=== PATIENT | female | born 1985 | race Caucasian/White ===

== ENCOUNTER 2019-05-17 14:04 | Inpatient (IN) | payer MEDICAID, SELFPAY ==
[2019-05-17] VITALS (7 sets, daily range): BP systolic 78–101; BP diastolic 43–54
[~2019-05-17] VITALS: Ht 172.7 cm; Wt 62.4 kg
[2019-05-17] MEDS ORDERED: MIDAZOLAM INJ 5 MG/ML VIAL (J2250) As Ordered ONE (14:38)
[2019-05-17] MEDS ORDERED: NS 1,000 ML IV ONE (14:45)
[2019-05-17] MEDS ORDERED: MIDAZOLAM HCL 50 MG in D5W 40 ML IV SCH (15:00)
--- NOTE | 2019-05-17 15:01 | REP ---
Clinical: Status post cardiac arrest . Comparison: None . Findings: Endotracheal tube approximately 4 cm above the brennen. The mediastinum and cardiac silhouette are stable and within normal limits for portable technique. The lung johnson are clear without acute consolidation, effusion, or pneumothorax. Skeletal structures are intact. Impression: No acute cardiopulmonary process appreciated. Electronically Signed by Ross Macedo MD 05/17/2019 02:52 P
[2019-05-17 15:50] LABS: HEMATOCRIT 48.9 % (36.0-47.0); HEMOGLOBIN 15.6 g/dl (12.0-15.5); MEAN CORPUSCULAR HEMOGLOBIN 30.9 pg (27.0-33.0); MEAN CORPUSCULAR HGB CONC 31.9 g/dl (32.0-36.5); MEAN CORPUSCULAR VOLUME 96.8 fl (80.0-96.0); PLATELET COUNT, AUTOMATED 316 10^3/uL (150-450); RED BLOOD COUNT 5.05 10^6/uL (4.00-5.40); WHITE BLOOD COUNT 15.9 10^3/uL (4.0-10.0)
--- NOTE | 2019-05-17 15:54 | REP ---
CT: 05/17/2019. Indication: Unresponsive. Stroke. Comparison: 09/29/2007. Findings: There is diffuse loss of mendez-white differentiation and sulcal effacement as well as effacement of the ventricles. The basal cisterns are effaced. 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 There is no shift of the midline structures. Comment: The above critical findings were conveyed to Dr. Gerardo at the time of interpretation. Electronically Signed by Chuck Black DO 05/17/2019 03:53 P
[2019-05-17 15:59] LABS: ABG BASE EXCESS -12.1 (-2.0-2.0); ABG HCO3 16.6 MEQ/L (22.0-26.0); ABG O2 SATURATION 94.5 % (95.0-99.0); ABG PARTIAL PRESSURE CO2 48.1 mmHg (35.0-45.0); ABG PARTIAL PRESSURE O2 88.5 mmHg (75.0-100.0); ABG STANDARD HCO3 15.2 MEQ/L (22.0-26.0); ABG TOTAL CO2 18.1 MEQ/L (22.0-29.0)
[2019-05-17 16:02] LABS: ABG pH (ARTERIAL) 7.157 UNITS (7.350-7.450)
[2019-05-17 16:17] LABS: AMPHETAMINES LEVEL URINE NEGATIVE (NEGATIVE); BARBITURATES URINE NEGATIVE (NEGATIVE); BENZODIAZEPINES URINE NEGATIVE (NEGATIVE); CANNABINOIDS URINE POSITIVE (NEGATIVE); COCAINE METABOLITE URINE POSITIVE (NEGATIVE); METHADONE URINE NEGATIVE (NEGATIVE); OPIATES URINE POSITIVE (NEGATIVE); PHENCYCLIDINE URINE NEGATIVE (NEGATIVE)
[2019-05-17 16:28] LABS: ANISOCYTOSIS 1+; ATYPICAL LYMPH 2 % (0-5); EOSINOPHILS 1 % (0-3); LYMPHOCYTES 12 % (16-44); MONOCYTES 5 % (0-5); NEUTROPHILS 77 % (28-66); PLATELET ESTIMATE NORMAL (NORMAL)
[2019-05-17 16:41] LABS: ACETAMINOPHEN LEVEL < 2.0 UG/ML (10.0-30.0); ALBUMIN 3.5 GM/DL (3.2-5.2); ALT/SGPT 475 U/L (12-78); BILIRUBIN,DIRECT 0.2 MG/DL (0.0-0.2); BILIRUBIN,TOTAL 0.5 MG/DL (0.2-1.0); BLOOD UREA NITROGEN 20 MG/DL (7-18); CALCIUM LEVEL 8.9 MG/DL (8.5-10.1); CARBON DIOXIDE LEVEL 20 MEQ/L (21-32); CHLORIDE LEVEL 97 MEQ/L (98-107); CPK CREATINE PHOSPHOKINASE 353 U/L (26-192); CREATININE FOR GFR 1.35 MG/DL (0.55-1.30); ETHYL ALCOHOL (ETHANOL) < 0.003 % (0.000-0.010); GLOMERULAR FILTRATION RATE 47.8 (>60); GLUCOSE, FASTING 385 MG/DL (70-100); POTASSIUM SERUM 5.5 MEQ/L (3.5-5.1); SALICYLATE LEVEL 4.6 MG/DL (5.0-30.0); SODIUM LEVEL 130 MEQ/L (136-145); TOTAL PROTEIN 7.8 GM/DL (6.4-8.2)
[2019-05-17] MEDS ORDERED: MIDAZOLAM INJ 2 MG/2 ML VIAL (J2250) IV ONE (17:00)
[2019-05-17] MEDS ORDERED: NS 1,000 ML IV SCH (17:00)
[2019-05-17] MEDS ORDERED: SODIUM BICARBONATE 8.4% INJ 50 ML SYRINGE IV STA (17:04)
[2019-05-17 17:54] LABS: INR 1.05; PROTHROMBIN TIME 13.4 SECONDS (11.8-14.0)
[2019-05-17 17:55] LABS: PARTIAL THROMBOPLASTIN TIME 29.2 SECONDS (25.0-38.4)
[2019-05-17] MEDS ORDERED: MIDAZOLAM INJ 2 MG/2 ML VIAL (J2250) IV PRN (18:00)
[2019-05-17] MEDS: NS 1,000 ML IV SCH ×2 (18:30→21:28)
--- NOTE | 2019-05-17 19:47 | HPE ---
DATE OF ADMISSION: 05/17/2019 START TIME: 1730 STOP TIME: 1813 I was called to the ER to attend Radha Umanzor. Patient was examined and chart was reviewed. I have spoken at length with the ER as well as with family at the bedside. In essence this is a 34-year-old female who has had difficulties in the past with substance abuse mainly heroin and Suboxone. Family said she had become clean several years ago after the of a family member. Today she was last seen around 11 am, went up to take a nap. Several hours later she was found face down and unresponsive by a room mate on the floor. EMS was summoned. She was unresponsive. Pupils fixed and dilated at that time. Initial rhythm was v-fib. CRP was started and she was given Narcan, reportedly no other drugs were shot. There was a return on spontaneous circulation. She was initially hypotensive and treated with fluids. She was intubated in the field. On arrival here pressure was soft. She was volume resuscitated. Triple lumen central venous catheter was placed in the right groin by the ER. Additional blood gas showed a pH of 6.844 with a PcO2 of 94 and a Po2 of 101. Lactic acid initially 12. [employer] blood gas after some time showed a pH of 7.157, PcO2 48.1 and Po2 of 88. Repeat blood gas is currently pending. She was treated with Versed due to her pressure being soft. Chest x-ray showed no infiltrate and tube in good position. Stomach was distended and that was prior to placement of an NG tube. CT of her brain show no bleed but shows diffuse edema consistent with anoxic injury. ALLERGIES: Aspirin and no other home meds. PAST MEDICAL HISTORY: Otherwise unremarkable except for her history of substance abuse. SOCIAL HISTORY: Noted to smoke. FAMILY HISTORY: Otherwise noncontributory. REVIEW OF SYSTEMS: Essentially unobtainable except for what the family is able to offer and otherwise she was doing reasonably well as of their last report. Vital Signs: HR 129 BP 176/88 Resp 18 Afebrile PHYSICAL EXAMINATION: She has been on some Versed but the left pupil is fixed and dilated. Right pupil is about 5 mm and nonresponsive. She has no cough or gag. No corneals. She currently does not over breathe the ventilator. Membranes are moist. Trachea is midline. Chest shows symmetric expansion. There is some expiratory squeak but no other focal adventitious breath sounds are identified. Heart exam is tachycardic with a rate of about 125 and regular. Peripheral pulses are palpable and no obvious edema. Abdomen is soft and there are active bowel sounds noted. No obvious organomegaly or masses. Extremities showed multiple bruises especially in the thighs. No cyanosis or clubbing. Neurologic she is otherwise unresponsive to painful stimuli. LABS: Tox screen is positive for opiates, cocaine, metalloids and cannabinoids. Sodium 130, K 5.5, chloride 97, CO2 20, BUN 20, creatinine 1.35, glucose 385, lactic acid down to 6.9, AST 683, ALT 475, alkaline phos 362, CK 353. White blood cell 50.9, hemoglobin 15.6, platelet count 316,000, 77% segmented neutrophils, 3% bands coags unremarkable. UA shows 2+ protein, 3+ glucose, 1+ blood, 2+ urobilinogen with 5 white blood cells and RBC's per high power field. Chest x-ray and CT scan as outlined above. IMPRESSION: 1. Profound anoxic encephalopathy status post cardiopulmonary arrest. 2. Suspect primary respiratory arrest secondary to drug overdose leading to subsequent loss of circulation. 3. Polysubstance abuse. 4. Tobacco abuse. RECOMMENDATIONS: I discussed the above at length with family at the bedside. Hanna Ferguson [phone] who is an aunt , brother Josue Del Rosario [phone] and another female relative at the bedside. I discussed with them the gravity of the situation and the profound nature of her anoxic encephalopathy. At this point she IS STILL A FULL CODE. Ulcer and DVT prophylaxis have been started. We will facilitate transfer to intensive care unit. Given the fact that she already has a profound anoxic encephalopathy and cerebral edema with an unknown but rather prolonged down time she is not a candidate for hypothermia protocol. There is no obvious evidence of aspiration and there is no infiltrate. We will begin bronchodilators in view of her smoking history however. At this point her prognosis is quite guarded and quite grim. I will discuss with the family further as time goes on whether or not they would like to change her code status. In the interim she will be volume resuscitated. We will use sedatives as needed. We will proceed as outlined above. Labs will be following his closely. Repeat her lactate. We will check a troponin and ABG. I will repeat a CT scan of her brain in the morning. At this point as outlined above. Her prognosis is grim to guarded especially regarding meaningful neurologic recovery. I will likely have neurology evaluate her tomorrow. I left the bedside at 1814 hours. 43 minutes of critical care time was at the bedside not including procedures. CARLOS A
[2019-05-17] MEDS: IPRATROPIUM 0.5MG/ALBUTEROL 2.5MG INH SOL UD 3ML (DUONEB)(J7620) NEB SCH (20:03)
[2019-05-17] MEDS ORDERED: MORPHINE 2 MG/ML 1ML VIAL (J2270) IV PRN (20:15)
--- NOTE | 2019-05-17 21:42 | ECGEPIP ---
[facility] - ED Test Date: 2019-05-17 Pat Name: FARZANA FRIAS Department: Room: - Gender: Female Lump Roller: roula : 1985 Requested By: KACIE VILLANUEVA Order Number: [id number] Reading MD: Ever Sarabia Measurements Intervals Sumpter Rate: 125 P: 77 GA: 146 QRS: 60 QRSD: 96 T: 54 QT: 300 QTc: 434 Interpretive Statements SINUS TACHYCARDIA MODERATE ST DEPRESSION NO PRIORS FOR COMPARISON Electronically Signed on 05-17-2019 21:42:19 EDT by Ever Sarabia
[2019-05-17] MEDS: CHLORHEXIDINE GLUCONATE 0.12 % 15ML UDC (PERIDEX ORAL RINSE) MT SCH (22:02)
[2019-05-17] MEDS: HEPARIN SOD (PORCINE) 5000 UNITS/ML VIAL SC SCH (22:02)
[2019-05-17 22:42] LABS: MB/CK RELATIVE INDEX 2.29 (< OR =4); TROPONIN I 1.24 NG/ML (< 0.10)
[2019-05-17] MEDS ORDERED: NS 500 ML IV ONE (23:15)
[2019-05-18] VITALS (59 sets, daily range): BP systolic 67–119; BP diastolic 35–60
[2019-05-18] MEDS: NOREPINEPHRINE BITARTRATE 8 MG in D5W 492 ML IV SCH ×2 (00:40→14:22)
[2019-05-18] MEDS: IPRATROPIUM 0.5MG/ALBUTEROL 2.5MG INH SOL UD 3ML (DUONEB)(J7620) NEB SCH ×5 (00:50→15:53)
[2019-05-18] MEDS: NS 1,000 ML IV SCH (05:36)
[2019-05-18] MEDS: HEPARIN SOD (PORCINE) 5000 UNITS/ML VIAL SC SCH ×2 (05:36→13:35)
[2019-05-18 05:42] LABS: BASO # 0.1 10^3/uL (0.0-0.2); BASO % 0.2 % (0.0-1.0); HEMATOCRIT 45.6 % (36.0-47.0); HEMOGLOBIN 14.6 g/dl (12.0-15.5); LYMPH # 0.6 10^3/uL (1.5-5.0); LYMPH % 2.2 % (24.0-44.0); MEAN CORPUSCULAR HEMOGLOBIN 30.7 pg (27.0-33.0); MONO # 0.8 10^3/uL (0.0-0.8); MONO % 2.7 % (0.0-5.0); NEUTROPHILS % 93.9 % (36.0-66.0); PLATELET COUNT, AUTOMATED 281 10^3/uL (150-450); RED BLOOD COUNT 4.75 10^6/uL (4.00-5.40); WHITE BLOOD COUNT 27.7 10^3/uL (4.0-10.0)
[2019-05-18 05:51] LABS: ABG BASE EXCESS -6.8 (-2.0-2.0); ABG HCO3 20.4 MEQ/L (22.0-26.0); ABG O2 SATURATION 96.4 % (95.0-99.0); ABG PARTIAL PRESSURE CO2 47.2 mmHg (35.0-45.0); ABG PARTIAL PRESSURE O2 94.3 mmHg (75.0-100.0); ABG TOTAL CO2 21.9 MEQ/L (22.0-29.0); ABG pH (ARTERIAL) 7.254 UNITS (7.350-7.450)
[2019-05-18 06:29] LABS: BILIRUBIN,TOTAL 0.3 MG/DL (0.2-1.0); CALCIUM LEVEL 8.6 MG/DL (8.5-10.1); CK-MB VALUE MASS 9.4 NG/ML (<3.6); CREATININE FOR GFR 1.14 MG/DL (0.55-1.30); GLOMERULAR FILTRATION RATE 58.1 (>60); MB/CK RELATIVE INDEX 3.21 (< OR =4); PHOSPHORUS LEVEL 1.4 MG/DL (2.5-4.9); POTASSIUM SERUM 3.9 MEQ/L (3.5-5.1); TOTAL PROTEIN 6.5 GM/DL (6.4-8.2); TROPONIN I 1.22 NG/ML (< 0.10)
[2019-05-18] MEDS ORDERED: GLUCOSE 4 GM CHEW TABLET PO PRN (06:45)
[2019-05-18] MEDS ORDERED: DEXTROSE 50% 50 ML SYRINGE IV PRN (06:45)
[2019-05-18] MEDS ORDERED: GLUCAGON FOR INJ 1 MG VIAL (J1610) SC PRN (06:45)
[2019-05-18] MEDS ORDERED: DESMOPRESSIN 0.01% NASAL SOLN 5 ML BTL ONE (07:00)
[2019-05-18] MEDS ORDERED: D5W/0.45% SODIUM CHLORIDE 1,000 ML IV SCH (07:00)
[2019-05-18] MEDS: HumaLOG INSULIN (NovoLOG) PER UNIT SC SCH ×2 (07:46→12:26)
--- NOTE | 2019-05-18 08:01 | REP ---
Clinical: Respiratory failure . Comparison: 05/17/2019 . Findings: Endotracheal tube and nasogastric tube are in stable satisfactory position. The The mediastinum and cardiac silhouette are stable and within normal limits for portable technique. The lung johnson are clear without acute consolidation, effusion, or pneumothorax. Skeletal structures are intact. Impression: No acute cardiopulmonary process appreciated. Electronically Signed by Ross Macedo MD 05/18/2019 07:52 A
[2019-05-18] MEDS: CHLORHEXIDINE GLUCONATE 0.12 % 15ML UDC (PERIDEX ORAL RINSE) MT SCH (08:03)
[2019-05-18] MEDS ORDERED: PANTOPRAZOLE 40MG INJ (PROTONIX) (C9113) IV SCH (09:00)
[2019-05-18] MEDS ORDERED: D5W 1,000 ML IV ONE ×2 (10:00→11:00)
--- NOTE | 2019-05-18 10:28 | CCN ---
DATE OF VISIT: 05/18/2019 START TIME: 904 STOP TIME: 953 I again attended Radha Umanzor here in the intensive care unit. The patient has been examined and the chart is reviewed. I have spoken at length with her aunt who is the family appointed decision maker. Reportedly, her estranged did present last night, spoke with the nursing staff as well as with the remainder of the family. He wants no part in the decision making process. T-max overnight 100.2. Blood pressure as low as 70s with a high of 108 systolic. She is now on Levophed. Heart rate 110 to 130s with a sinus mechanism. She does not over breathe the ventilator. Ins and outs since midnight 1871 mL in with 6175 mL out. She has been given one dose of DDAVP and this is beginning to slow. White blood cell count 27.7, hemoglobin 14.6, platelet count 281,000 with 93% segs and 0 bands. Sodium up to 163, potassium 3.9, chloride 134, CO2 23, BUN 16, creatinine 1.14, lactate 2.4, phosphorus low at 1.4. Liver function tests all improved. AST 257, ALT 330, alkaline phosphatase 197, LDH 452. Troponin has remained unchanged at 1.2 since last night. Blood gas done this morning on PRVC, rate of 18, tidal volume of 420, PEEP of 5, FiO2 of 40% has a pH of 7.254, pCO2 47.2, pO2 of 94.3, saturation 96.4%. Chest x-ray shows ET tube and NG tube in good position. On exam, she is unresponsive to noxious stimuli. Pupils are both fixed and dilated. She has no cough, no gag and no corneals. Chest is clear to both auscultation and percussion. No focal adventitious breath sounds are identified. Cardiac exam is tachycardic, but regular. Peripheral pulses palpable, no edema. Abdomen shows diminished, but active bowel sounds. Abdomen is soft. Extremities show no cyanosis or clubbing. Neurologically, she does have some occasional what appear to be spinal cord reflex, but no significant response to noxious stimuli. Repeat CT scan is pending. Echo and electroencephalogram (EEG) have been ordered. I have spoken with nephrology and neurology, both who will evaluate her today. The most pressing problems requiring my immediate presence at the bedside: 1. Noxious encephalopathy secondary to polypharmacy overdose. 2. Respiratory failure secondary to #1. 3. Diabetes insipidus. She clearly has diabetes insipidus at this point. She was given a dose of DDAVP. We are correcting her electrolytes. I have asked nephrology to become involved in her care in that regard. I had a very lengthy discussion at the bedside with her aunt who is the decision maker. She is certainly leaning towards DO NOT RESUSCITATE (DNR) status, but wishes to have the patient's brother involved in the decision and he is having significant difficulties coming to waiter/waitress first class with her current situation. She clearly has a profound anoxic injury. I have neurology to become involved in her care. Repeat CT scan as well as EEG are pending. I did discuss with the aunt that she likely will progress to clinical brain if she hasn't reached that point already. We will continue her current level of supportive care, including all the interventions alluded to above. She remains on ulcer and deep vein thrombosis (DVT) prophylaxis. Ventilator adjustments have been made for her persistent metabolic acidosis, which at this point is likely hyperchloremic. Will proceed as outlined above. I await the family's further decision regarding code status. I left the bedside at 0954 hours. 49 minutes of critical care time delivered at the bedside, not including procedures.
--- NOTE | 2019-05-18 11:03 | REP ---
CT brain: 05/18/2019. Indication: Anoxic encephalopathy. Comparison: Yesterday. Technique: Unenhanced axial images of the brain were obtained from skull base to vertex. Findings: There is diffuse loss of mendez-white differentiation. Diffuse sulcal, ventricular and basal cistern effacement is noted. Pseudo subarachnoid sign is present. Cerebellar tonsils extend into the foramen magnum. Impression: Findings consistent with diffuse anoxic brain injury. Electronically Signed by Chuck Black DO 05/18/2019 10:54 A
[2019-05-18] MEDS ORDERED: VASOPRESSIN INJ 20 UNITS in NS 499 ML IV SCH (11:30)
[2019-05-18] MEDS ORDERED: NEUTRA-PHOS 1.5 GM PACKET PO SCH (12:00)
[2019-05-18] MEDS: KCL 20MEQ IN D5W 1000ML 1,000 ML IV SCH ×2 (12:06→15:55)
[2019-05-18 12:28] LABS: ALBUMIN 2.6 GM/DL (3.2-5.2); CALCIUM LEVEL 8.3 MG/DL (8.5-10.1); CK-MB VALUE MASS 7.3 NG/ML (<3.6); CREATININE FOR GFR 1.43 MG/DL (0.55-1.30); GLOMERULAR FILTRATION RATE 44.7 (>60); MAGNESIUM LEVEL 2.2 MG/DL (1.8-2.4); MB/CK RELATIVE INDEX 1.56 (< OR =4); PHOSPHORUS LEVEL 0.9 MG/DL (2.5-4.9); POTASSIUM SERUM 2.8 MEQ/L (3.5-5.1); TROPONIN I 0.83 NG/ML (< 0.10)
[2019-05-18] MEDS: KCL 10MEQ/100ML SWI (KRUN) 10 MEQ in IV 1 EA IV SCH ×3 (13:34→15:30)
[2019-05-18 16:45] LABS: ALBUMIN 2.6 GM/DL (3.2-5.2); BLOOD UREA NITROGEN 10 MG/DL (7-18); CALCIUM LEVEL 8.3 MG/DL (8.5-10.1); CARBON DIOXIDE LEVEL 24 MEQ/L (21-32); CHLORIDE LEVEL 132 MEQ/L (98-107); CREATININE FOR GFR 1.07 MG/DL (0.55-1.30); GLOMERULAR FILTRATION RATE > 60.0 (>60); GLUCOSE, FASTING 339 MG/DL (70-100); POTASSIUM SERUM 3.7 MEQ/L (3.5-5.1); SODIUM LEVEL 159 MEQ/L (136-145)
[2019-05-18 16:52] LABS: ABG BASE EXCESS -7.9 (-2.0-2.0); ABG HCO3 21.4 MEQ/L (22.0-26.0); ABG O2 SATURATION 94.1 % (95.0-99.0); ABG PARTIAL PRESSURE O2 79.2 mmHg (75.0-100.0); ABG STANDARD HCO3 18.1 MEQ/L (22.0-26.0); ABG TOTAL CO2 23.3 MEQ/L (22.0-29.0)
[2019-05-18 16:55] LABS: ABG pH (ARTERIAL) 7.166 UNITS (7.350-7.450)
[2019-05-18 16:57] LABS: ABG PARTIAL PRESSURE CO2 60.6 mmHg (35.0-45.0)
--- NOTE | 2019-05-18 21:18 | CR ---
DATE OF CONSULTATION: 05/18/2019 NEPHROLOGY CONSULTATION FOR: Raza Weir MD REASON FOR CONSULTATION: Hypernatremia and possible diabetes insipidus. HISTORY OF PRESENT ILLNESS: Miss Umanzor is a 34-year-old female who was admitted to [facility] last evening due to unresponsiveness. The patient has known history of substance abuse in the past and was found unresponsive by her roommate. Emergency medical services (EMS) called and the patient was found in ventricular fibrillation (V fib) initially and resuscitated. She is intubated and in intensive care unit now on pressors. Her sodium level was 130 on arrival; however, this morning her sodium went up to 163. Through the night, she has developed excessive urine output, and there is a suspicion for possible central diabetes insipidus. Dr. Weir has already given her a dose of DDAVP this morning, and she is receiving IV fluid. I was asked to see her this morning in intensive care unit. PAST MEDICAL AND SURGICAL HISTORY: The patient has no known medical problems. She does have a history of substance abuse in the past, and there is suspected drug overdose now. ALLERGIES: She has a possible allergy to ASPIRIN. MEDICATIONS: She was not taking any prescription medications. PERSONAL AND SOCIAL HISTORY: Known to have a history of substance abuse and also a history of smoking. The patient is unresponsive and not able to provide any information. FAMILY HISTORY: Noncontributory. REVIEW OF SYSTEMS: The patient is intubated, and she is totally unresponsive. No other pertinent information is available at present. PHYSICAL EXAMINATION: This is a young lady who is intubated in intensive care unit. Her heart rate is about 120 per minute. Blood pressure 80s over 50s mmHg and oxygen saturation above 90% on 40% FiO2. Temperature is 97.7 degrees Fahrenheit. Pupils are dilated and fixed. She has an endotracheal tube in place. Neck is without any jugular venous distention (JVD) or thyroid enlargement. There are no palpable cervical lymph nodes. Heart sounds are tachycardiac and lungs have good bilateral air entry. Abdomen: Soft and nontender. Bowel sounds are present. Extremities: Without any cyanosis or clubbing. Neurologically, she is totally unresponsive. LABORATORY DATA: On admission, WBC count was 15.9, hemoglobin 15.6 and hematocrit 48.9. Platelets are 316. Today WBC count is 27.7, hemoglobin 14.6 and hematocrit 45.6. Blood gas on admission showed a pH of 7.15, pCO2 48 and pO2 88.5. Bicarbonate was 15. A repeat blood gas this morning showed a pH of 7.25, pCO2 of 47 and pO2 of 94.3. Bicarbonate is up to 19. Toxicology screen showed opiate screen positive, salicylates 4.6, cocaine metabolite are positive and cannabinoids also positive. Her initial chemistry on admission showed a sodium of 130, potassium 5.5, CO2 of 20, BUN 20 and creatinine 1.35, glucose 385 and lactic acid level 6.9. Total CPK was 353 and a TSH level of 6.66. This morning, sodium is up to 163, potassium 3.9, chloride 134, CO2 of 23, BUN 16 and creatinine 1.14. Glucose 259 and lactic acid is down to 2.4. Calcium 8.6 and phosphorus 1.4. AST 257, ALT 330, alkaline phosphatase 197, LDH 452 and CPK 293. Urinalysis showed pH of 1.009, 2+ protein and 3+ glucose, 5 WBCs and 9 RBCs. PROBLEM #1: Hypernatremia, most likely related to central diabetes insipidus. She is about 4 liters negative fluid balance with urine output in the range of 500-700 mL per hour. She is currently receiving D5 and half normal saline. We will give her a bolus of D5W 1 liter and also recommend to switch her IV fluid to D5W. We will need to monitor her blood sugars closely as she does have hyperglycemia and with excessive amount of D5W, she is likely to develop further worsening hyperglycemia. She most likely has central diabetes insipidus caused by anoxic brain injury. She has already received a dose of DDAVP and urine output seems to be already decreased. We will have to catch up on her negative fluid balance and give her at least 2-3 liters of extra fluid. Her electrolytes should be checked frequently and potassium will need to be supplemented as needed. We will also check her magnesium level with next blood work. PROBLEM #2: Anoxic brain injury. CT scan of head done on admission was consistent with global ataxic brain injury, and a repeat CT scan has been just done. She likely has severe anoxic brain injury and prognosis remains poor. Dr. Weir is discussing with the family about her plan of care and possibility of withdrawal of care. A neurology consultation is also pending. Thank you for involving me in the care of this young lady. Nephrology service will follow her along with you. CARLOS A
--- NOTE | 2019-05-19 11:03 | DSES ---
DATE OF ADMISSION: 05/17/2019 DATE OF DISCHARGE/EXPIRATION: 05/18/2019 DISCHARGE DIAGNOSES: 1. Profound anoxic encephalopathy secondary to respiratory arrest. 2. Respiratory arrest secondary to drug overdose. 3. Diabeted Insipidus HISTORY: Ms. Umanzor is a 34-year-old female found down at home. Does have a prior history of recreational drug use. She was found essentially unresponsive in ventricular fibrillation. Did respond to Narcan. Was intubated and brought to the hospital with return of circulation. In the ER found to have significant anoxic injury by exam and CT findings. Please refer to the admission note for exam and vital signs HOSPITAL COURSE: She was brought to the intensive care unit. She was volume resuscitated. Her admission CT scan showed profound edema consistent with anoxic encephalopathy and this progressed over the next 12 hours. At the time of her initial evaluation, she had no cough, no gag and no coronal reflexes. At the time of admission, she had left pupil blown and the right pupil was small but nonreactive. Initially, she was also unresponsive to all stimuli. This continued to progress. Multiple discussions were had with the family and namely her aunt Hanna Gloria, who was chosen by the family. She had marked increase in urine output consistent with diabetes insipidus with an increase in her serum sodium. This did respond to appropriate therapy. Neurology was consulted. After their evaluation and EEG findings were discussed with the family, they opted for comfort measures care and the patient was extubated. She at 1912 hours. No autopsy requested. PERTINENT LABORATORIES: Please refer to the hospital record. MTDD
--- NOTE | 2019-05-19 11:23 | CR ---
DATE OF CONSULTATION: 05/18/2019 REFERRING PHYSICIAN: Dr. Raza Weir. REASON FOR CONSULTATION: Hypoxic ischemic encephalopathy due to cardiac arrest. HISTORY OF PRESENT ILLNESS: Radha Umanzor is a 34-year-old woman with history of substance abuse, mainly heroin and Suboxone. She had become cleaned several years ago after of a family member. She was last seen around 11:00 a.m. on May 17, 2019 when she went to take a nap. Another friend went to take a nap as well. She was found by her friend around late afternoon several hours later with her face down and unresponsive. Her roommate found her on the floor. She was found unresponsive with fixed dilated pupils by emergency medical service (EMS) and initial cardiac rhythm was ventricular fibrillation and cardiopulmonary resuscitation (CPR) was started. She was given Narcan but no other drugs were given. There was returned to spontaneous circulation. She was hypotensive and was intubated on the scene. Her arterial blood gas showed pH 6.8 with pACO2 94 and pO2 101. Lactic acid was 12 initially. The patient was given only 2 mg of Versed in the emergency department and has been without sedation for 24 hours when I saw her. She remains completely unresponsive. She has no light reflex, gag reflex, corneal reflex, withdrawal to pain. She minimally postures in her leg when pain is applied to her feet. She does not respond to sternal rub. ALLERGIES: ASPIRIN. HOME MEDICATIONS: None. PAST MEDICAL HISTORY: Substance abuse. SOCIAL HISTORY: History of heroin and Suboxone abuse. FAMILY HISTORY: Noncontributory. Review of systems could not be obtained. PHYSICAL EXAMINATION: Pulse 114, blood pressure 101/51, 90% saturations on 80% FiO2 and ventilated. Heart is tachycardiac. Lungs are clear to auscultation. Abdomen: Soft, nondistended. No pedal edema. No tremor or signs of meningeal irritation. The patient is intubated without sedation. She is completely unresponsive and comatose. She has no pupillary light reflex. Her pupils are dilated up to 10 mm bilaterally nonreactive to light. She has no corneal or gag reflex. Plantars are mute. She does not wake up to sternal rub or painful stimuli. She minimally postures her legs to painful stimuli. Cerebellar, sensory, motor and gait testing cannot be performed. DIAGNOSTIC STUDIES: CT scan of her head showed diffuse severe cerebral edema on arrival. Her EEG did not show any electrical activity except EKG lead revealed sinus tachycardia. Her sodium is 159 with glucose 339, AST 257 and ALT 330, pH 7.16, pCO2 60.6 and pO2 79.2. WBC 27.7. Urine toxicology positive for cocaine, opiates and cannabis. ASSESSMENT: 1. Severe hypoxic ischemic encephalopathy and coma. 2. Brain . PLAN: 1. Based on her CT scan, physical examination and EEG and laboratory data, the patient meets criteria for brain and carries a poor/grave prognosis. I explained my impression and findings with the patient's family. 2. The patient's family wants to withdraw care at this time. JAQUELIND
--- NOTE | 2019-05-19 11:27 | EEG ---
DATE OF PROCEDURE: 05/18/2019 REFERRING PHYSICIAN: Dr. Raza Weir. DIAGNOSIS: Anoxic encephalopathy. EE HISTORY: The patient is a 34-year-old woman who was admitted at [facility] due to cardiac arrest following opiate overdose and was found in ventricular fibrillation and coma. She is on ventilator without sedation and remains unresponsive. TECHNICAL DESCRIPTION: This digital EEG was recorded by 21 scalp, ear and two EKG electrodes and was reviewed in bipolar and referential montages following reformatting 10-20 international electrode placement system. INTERPRETATION: The patient remains unresponsive, comatose on ventilator without sedation. EKG revealed sinus tachycardia with heart rate around 120 beats per minute. I do not see any cerebral electrical activity except EKG artifact. No awake or sleep activity is noted. No focal, lateralizing or epileptiform abnormalities were seen. CONCLUSION: This EEG in a comatose patient without sedation on ventilator is severely abnormal and meets criteria for electrocerebral silence. This likely indicates poor/grave prognosis. Clinical correlation is recommended.
--- NOTE | 2019-05-19 14:35 | ECHO ---
DATE OF PROCEDURE: 05/18/2019 REFERRING PHYSICIAN: Dr. Raza Weir. REASON FOR STUDY: Abnormal EKG. 2D MEASUREMENTS: IVS - 0.9 cm LV - 3.1 cm LVPW - 0.9 cm LA - 3.1 cm Aorta - 2.5 cm IVC - 2.2 cm DOPPLER MEASUREMENTS: Peak velocity across the aortic valve - 1.5 meters per second Peak velocity across the LVOT - 1.4 meters per second Mitral E - 0.81, Mitral A 0.84 with a ratio of less than 1.0 2D COMMENTS: 1. Normal left ventricular size, wall thickness, and normal global left ventricular systolic function. The estimated ventricular systolic ejection fraction is 60-65%. 2. Normal left atrium. Normal right atrium and right ventricle. 3. The atrial septum appeared to be normal without evidence of defect or shunt. 4. Normal aortic root. 5. Trace pericardial effusion noted, no evidence of cardiac component. 6. The aortic valve, mitral valve, and tricuspid valve appeared to be normal. The pulmonic valve and proximal pulmonary artery branches were not well visualized. 7. The inferior vena cava was mildly enlarged, central venous pressure might be elevated. Doppler: No significant valvular abnormalities detected. IMPRESSION: 1. Normal global left ventricular systolic function. There is some features of grade 1 left ventricular diastolic dysfunction manifested by abnormal relaxation. 2. No significant valvular heart disease detected. 3. Trace pericardial effusion was noted in limited views. 4. The patient was noted during the test to be tachycardic with a heart rate at about 120 beats per minute at times. 5. The study was technically limited due to poor acoustic window.
--- NOTE | 2019-05-21 21:17 | ECGEPIP ---
[facility] Test Date: 2019-05-18 Pat Name: FARZANA FRIAS Department: Room: [place] [address] Gender: Female [employer]: MAZIN : 1985 Requested By: Raza Weir Order Number: [id number] Reading MD: Ruben Chavez Measurements Intervals [place] Rate: 121 P: 95 OR: 132 QRS: 75 QRSD: 85 T: 58 QT: 407 QTc: 579 Interpretive Statements Sinus tachycardia Diffuse repolarization abnormalities, consider ischemia Compared to prior tracing of 05/17/2019, repolarization abnormalities are s significantly increased Electronically Signed on 05-21-2019 21:16:50 EST by Ruben Chavez
== END 2019-05-18 21:06 | disposition expired | DRG 816 ==
LOC: M ED 14:04 → M ED INP 18:00 → M ICU 19:48
PROVIDERS: ADMIT Internal Medicine Pulmonary Disease; ATTEND Internal Medicine Pulmonary Disease
PROC: 5A1945Z Respiratory Ventilation, 24-96 Consecutive Hours (ICD-10-PCS; principal; 2019-05-17)
DX: T40.5X2A Poisoning by cocaine, intentional self-harm, initial encounter (principal); G93.6 Cerebral edema; I46.9 Cardiac arrest, cause unspecified; R40.20 Unspecified coma; G93.40 Encephalopathy, unspecified; E23.2 Diabetes insipidus; G93.1 Anoxic brain damage, not elsewhere classified; Z51.5 Encounter for palliative care; F17.200 Nicotine dependence, unspecified, uncomplicated